=== PATIENT | female | born 1995 | race Hispanic/Latino ===

== ENCOUNTER 2016-09-25 19:07 | Emergency (ER) | payer MEDICAID ==
[2016-09-25 19:30] VITALS: BMI 30.2
[2016-09-25 19:37] VITALS: TEMP 97.8
--- NOTE | 2016-09-25 19:48 | ED PDOC ---
Arrival/HPI - General Chief Complaint: Finger,Hand,&Wrist Time Seen by Provider: 09/25/16 19:37 Historian: Patient - History of Present Illness Narrative History of Present Illness (Text): 09/25/16 19:45 Patient presents to emergency room complaining of bilateral wrist pain, right greater than left, she describes the pain as intermittent sharp pain associated with a pins and needles numb sensation to the fingertips. 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 Patient does admit to repetitive movements at work using her hands and wrist. Denies any trauma, fever, chills, other joint pain, has no other complaints otherwise. PMD Elayne Past Medical History - Provider Review Nursing Documentation Reviewed: Yes - Past Medical History Past Medical History: No Previous - Psychiatric Hx Depression: No Hx Emotional Abuse: No Hx Physical Abuse: No Hx Substance Use: No - Past Surgical History Past Surgical History: No Previous - Anesthesia Hx Anesthesia: No - Suicidal Assessment Feels Threatened In Home Enviroment: No Family/Social History - Physician Review Nursing Documentation Reviewed: Yes Family/Social History: No Known Family HX Smoking Status: Current Some Days Smoker Hx Alcohol Use: Yes (socially) Frequency of alcohol use: Socially Hx Substance Use: No Hx Substance Use Treatment: No Allergies/Home Meds Allergies/Adverse Reactions: Allergies Penicillins Allergy (Verified 09/25/16 19:30) RASH Review of Systems - Review of Systems Constitutional: Normal. absent: Fatigue, Weight Change, Fevers Musculoskeletal: Normal, Arthralgias. absent: Back Pain, Neck Pain Skin: Normal. absent: Rash, Pruritis Physical Exam - Physical Exam Narrative Physical Exam (Text): 09/25/16 19:47 GENERAL APPEARANCE: Patient is awake, alert, oriented x 3, in no acute distress. SKIN: Warm, dry; (-) cyanosis. WRIST: (+) Mild tenderness to the volar aspect of the R wrist, (-) swelling, (- ) ecchymosis, (-) deformity. (+) FROM, (-) snuff-box tenderness. (-) distal neurovascular deficit. HANDS: (-) Tenderness, (-) swelling, (-) ecchymosis; (-) crepitus, (-) deformity. Tendon function intact. (-) distal neurovascular deficit. 2 point discrimination. Remainder of hand, digits and elbow: (-) tenderness, (-) edema , (+) FROM. Vital Signs Temp Pulse Resp BP Pulse Ox 09/25/16 19:36 97.8 F 69 16 125/62 97 Medical Decision Making ED Course and Treatment: 09/25/16 19:48 21 yo F presents with b/l wrist pain, R>L, likely carpal tunnel syndrome, will treat as such. Cock up splint applied to b/l wrist. Rx of naprosyn provided. Patient states she fully agrees with and understands discharge instructions. States that she agrees with the plan and disposition. Verbalized and repeated discharge instructions and plan. I have given the patient opportunity to ask any additional questions. Follow up with primary care physician in 1-2 days without fail. Advised to take medication as prescribed. Return to the emergency room at any time for any new or worsening symptoms. - PA / QUALITY ASSOCIATE / Resident Statement / has reviewed & agrees with the documentation as recorded. Disposition/Present on Arrival - Present on Arrival Any Indicators Present on Arrival: No History of DVT/PE: No History of Uncontrolled Diabetes: No Urinary Catheter: No History of Decub. Ulcer: No History Surgical Site Infection Following: None - Disposition Have Diagnosis and Disposition been Completed?: Yes Diagnosis: Bilateral wrist pain, Carpal tunnel syndrome Disposition: HOME/ ROUTINE Disposition Time: 19:50 Patient Plan: Discharge Condition: GOOD Discharge Instructions (ExitCare): Carpal Tunnel Syndrome (ED) Print Language: SAMMARINESE Additional Instructions: Thank you for letting us take care of you today. You were treated for bilateral wrist pain, likely carpal tunnel syndrome. The emergency medical care you received today was directed at your acute symptoms. If you were prescribed any medication, please fill it and take as directed. It may take several days for your symptoms to resolve. Return to the Emergency Department if your symptoms worsen, do not improve, or if you have any other problems. Please contact your doctor in 2 days for re-evaluation and follow up / or call one of the physicians/clinics you have been referred to that are listed on the Patient Visit Information form that is included in your discharge packet. Bring any paperwork you were given at discharge with you along with any medications you are taking to your follow up visit. Our treatment cannot replace ongoing medical care by a primary care provider (PCP) outside of the emergency department. Thank you for allowing the [facility] team to be part of your care today. Prescriptions: Naproxen 500 mg PO BID #30 tab Forms: WORK NOTE
[2016-09-25 20:47] VITALS: BP 112/41; PULSE 78; RESP 18; O2SAT 100
== END 2016-09-25 20:45 | disposition home or self-care (01) ==
LOC: ED 19:07
DX: M25.532 Pain in left wrist (principal); M25.531 Pain in right wrist; G56.03 Carpal tunnel syndrome, bilateral upper limbs

== ENCOUNTER 2016-10-20 13:41 | Emergency (ER) | payer MEDICAID ==
[2016-10-20 13:41] VITALS: BMI 30.2
[2016-10-20] MEDS ORDERED: Sodium Chloride 0.9% 1,000 ML IV STA ×2 (13:58→15:07)
--- NOTE | 2016-10-20 14:03 | ED PDOC ---
Arrival/HPI - General Chief Complaint: Abdominal Pain Time Seen by Provider: 10/20/16 13:48 Historian: Patient - History of Present Illness Narrative History of Present Illness (Text): 10/20/16 14:00 -21 y/o female, pmh including renal stone, penicillin allergy, c/o lt. flank pain radiating to the lt. lower abdominal x 5 hours. Aching and sharp pain, no urinary symptoms, no fever or chills, no rash, feels nauseous, no pelvic pain, no vaginal pain or bleeding, no night sweat, no other medical or psychological complaints. Past Medical History - Provider Review Nursing Documentation Reviewed: Yes - Infectious Disease Hx of Infectious Diseases: None - Reproductive Menopause: No - Past Medical History Past Medical History: No Previous - Renal Hx Kidney Stones: Yes - Psychiatric Hx Depression: No Hx Emotional Abuse: No Hx Physical Abuse: No Hx Substance Use: No - Past Surgical History Past Surgical History: No Previous - Anesthesia Hx Anesthesia: No - Suicidal Assessment Feels Threatened In Home Enviroment: No Family/Social History - Physician Review Nursing Documentation Reviewed: Yes Family/Social History: Unknown Family HX Smoking Status: Current Some Days Smoker Hx Alcohol Use: Yes (socially) Hx Substance Use: No Hx Substance Use Treatment: No Allergies/Home Meds Allergies/Adverse Reactions: Allergies Penicillins Allergy (Verified 09/25/16 19:30) RASH Home Medications: Home Meds Medication Instructions Recorded Confirmed Naproxen 500 mg PO PRN PRN 10/20/16 10/20/16 Review of Systems - Review of Systems Constitutional: absent: Fatigue, Fevers Eyes: absent: Vision Changes ENT: absent: Hearing Changes Respiratory: absent: Cough, Sputum Cardiovascular: absent: Chest Pain Gastrointestinal: Abdominal Pain, Nausea, Vomiting Genitourinary Female: absent: Dysuria Musculoskeletal: Back Pain. absent: Arthralgias, Neck Pain, Joint Swelling Skin: absent: Rash, Pruritis, Skin Lesions Neurological: absent: Headache, Dizziness, Focal Weakness Endocrine: absent: Diaphoresis Psychiatric: absent: Anxiety, Depression, Suicidal Ideation Physical Exam Vital Signs Reviewed: Yes Vital Signs Temp Pulse Resp BP Pulse Ox 10/20/16 15:03 64 18 138/86 100 10/20/16 13:51 97.6 F 68 20 142/90 100 Temperature: Afebrile Blood Pressure: Normal Pulse: Regular Respiratory Rate: Normal Appearance: Positive for: Well-Appearing, Non-Toxic, Uncomfortable Pain Distress: Moderate Mental Status: Positive for: Alert and Oriented X 3 - Systems Exam Head: Present: Atraumatic, Normocephalic Pupils: Present: PERRL Extroacular Muscles: Present: EOMI Conjunctiva: Present: Normal Ears: Present: NORMAL TM, Normal Canal. No: Erythema Mouth: Present: Moist Mucous Membranes Pharnyx: No: ERYTHEMA, EXUDATE, TONSILS ENLARGED, Uvular Deviation, Muffled/ Hoarse Voice, Soft Palate/Uvular Edema Neck: Present: Normal Range of Motion Respiratory/Chest: Present: Clear to Auscultation, Good Air Exchange. No: Respiratory Distress, Accessory Muscle Use Cardiovascular: Present: Regular Rate and Rhythm, Normal S1, S2. No: Murmurs Abdomen: Present: Tenderness (lt. lower quadrant), Normal Bowel Sounds. No: Distention, Peritoneal Signs, Rebound, Guarding Back: Present: Normal Inspection, CVA Tenderness (left). No: Midline Tenderness , Paraspinal Tenderness, Pain with Leg Raise, Decubitus Ulcer Upper Extremity: Present: Normal Inspection. No: Cyanosis, Edema Lower Extremity: Present: Normal Inspection. No: Edema Neurological: Present: GCS=15, Speech Normal, Motor Func Grossly Intact, Gait Normal, Memory Normal Skin: Present: Warm, Dry, Normal Color. No: Rashes Lymphatic: No: Cervical Adenopathy Psychiatric: Present: Alert, Oriented x 3, Normal Insight, Normal Concentration Medical Decision Making ED Course and Treatment: 10/20/16 13:59 -labs/ua -CT abdomen and pelvis -IVF/reglan/toradol -Observe and reasses 10/20/16 14:26 -Labs are non-significant -UA show no UTI -pending CT abdomen and pelvis. 10/20/16 15:09 -CT show mild lt. hydronephrosis with 3mm stone. -more IVF/flomax/strainer/flexeril ordered, pain is well controlled now. 10/20/16 15:14 -[facility] report I reviewed with no narcotic prescription given this year. -I will put her on flexeril and flomax. -Discharge home with macrobid, flexeril, percocet, flomax, strainer, stay hydrated, bed rest, follow up with your own pmd and urologist within 2 days, return to the ER for any new or worsening signs or symptoms. - Lab Interpretations Lab Results: 10/20/16 14:09 10/20/16 14:09 Lab Results 10/20/16 14:09: Sodium 141, Potassium 3.8, Chloride 105, Carbon Dioxide 22, Anion Gap 18, BUN 21, Creatinine 0.7, Est GFR ( Amer) > 60, Est GFR (Non- Af Amer) > 60, Random Glucose 106, Calcium 9.3, Total Bilirubin 0.4, AST 22, ALT 25, Alkaline Phosphatase 89, Total Protein 7.7, Albumin 4.3, Globulin 3.4, Albumin/Globulin Ratio 1.3, Lipase 87 10/20/16 14:09: Urine Color Light yellow, Urine Appearance Sl cloudy, Urine pH 6.5, Ur Specific [place] 1.015, Urine Protein Negative, Urine Glucose (UA) Negative, Urine Ketones Negative, Urine Blood Large H, Urine Nitrate Negative, Urine Bilirubin Negative, Urine Urobilinogen 0.2, Ur Leukocyte Esterase Negative , Urine RBC 10 - 15, Urine WBC 0 - 2, Ur Epithelial Cells 1 - 3, Urine Bacteria Few 10/20/16 14:09: WBC 5.6, RBC 4.67, Hgb 12.3, Hct 37.4, MCV 80.1, MCH 26.3, MCHC 32.9, RDW 14.5, Plt Count 282, MPV 9.1, Gran % 59.2, Lymph % (Auto) 31.1, [place] % (Auto) 7.0 H, Eos % (Auto) 2.0, Baso % (Auto) 0.7, Gran # 3.30, Lymph # 1.7, [place] # 0.4, Eos # 0.1, Baso # 0.04 I have reviewed the lab results: Yes Interpretation: No clinic. lab abnormalty - RAD Interpretation Radiology Orders: 10/20/16 13:58 ABD & PELVIS W/O PO OR IV CONT [CT] Stat - Medication Orders Current Medication Orders: Sodium Chloride (Sodium Chloride 0.9%) 1,000 mls @ 999 mls/hr IV .Q1H1M STA Stop: 10/20/16 16:07 Discontinued Medications Cyclobenzaprine HCl (Flexeril) 10 mg PO STAT STA Stop: 10/20/16 15:08 Sodium Chloride (Sodium Chloride 0.9%) 1,000 mls @ 999 mls/hr IV .Q1H1M STA Stop: 10/20/16 14:58 Last Admin: 10/20/16 14:11 Dose: 999 mls/hr Ketorolac Tromethamine (Toradol) 30 mg IVP STAT STA Stop: 10/20/16 13:59 Last Admin: 10/20/16 14:13 Dose: 30 mg Metoclopramide HCl (Reglan) 10 mg IVP STAT STA Stop: 10/20/16 13:59 Last Admin: 10/20/16 14:14 Dose: 10 mg Tamsulosin HCl (Flomax) 0.4 mg PO STAT STA Stop: 10/20/16 15:08 - PA / SENIOR ACCOUNTANT CPA / Resident Statement / has reviewed & agrees with the documentation as recorded. Disposition/Present on Arrival - Present on Arrival Any Indicators Present on Arrival: No History of DVT/PE: No History of Uncontrolled Diabetes: No Urinary Catheter: No History of Decub. Ulcer: No History Surgical Site Infection Following: None - Disposition Have Diagnosis and Disposition been Completed?: Yes Diagnosis: Ureter colic Disposition: HOME/ ROUTINE Disposition Time: 15:10 Patient Plan: Discharge Patient Problems: Current Active Problems Problem Status Onset Ureter colic Acute Condition: IMPROVED Additional Instructions: Discharge home with macrobid, flexeril, percocet, flomax, strainer, stay hydrated, bed rest, follow up with your own pmd and urologist within 2 days, return to the ER for any new or worsening signs or symptoms. Prescriptions: Cyclobenzaprine [Cyclobenzaprine HCl] 10 mg PO TID PRN #21 tab PRN Reason: Other Nitrofurantoin Macrocrystals [Macrobid] 100 mg PO BID #14 cap oxyCODONE/Acetaminophen [Percocet 5/325 mg Tab] 1 tab PO TID PRN #8 tab PRN Reason: Other Tamsulosin [Flomax] 0.4 mg PO DAILY #7 cap Referrals: PCP,NO [Primary Care Provider] - Follow up with primary Nadeem Kinsey MD [Staff Provider] - Follow up with primary [facility] [place] [Outside] - Follow up with primary Forms: WORK NOTE
[2016-10-20 14:11] LABS: ADD MANUAL DIFF? NO
[2016-10-20 14:13] LABS: BASO # 0.04 K/mm3 (0.0-2.0); BASO % 0.7 % (0.0-3.0); EOS # 0.1 (0.0-0.7); GRAN % 59.2 % (50.0-68.0); HEMATOCRIT 37.4 % (36.0-48.0); LYMPH # 1.7 (1.2-3.4); LYMPH % 31.1 % (22.0-35.0); MEAN CELL VOLUME 80.1 fL (80.0-105.0); MEAN CORPUSCULAR HEMOGLOBIN 26.3 pg (25.0-35.0); MEAN CORPUSCULAR HGB CONC 32.9 g/dl (31.0-37.0); MEAN PLATELET VOLUME 9.1 fl (7.0-11.0); MONO # 0.4 (0.1-0.6); PLATELET COUNT 282 10^3/uL (120.0-450.0); RED CELL DISTRIBUTION WIDTH 14.5 % (11.5-14.5); WHITE BLOOD COUNT 5.6 10^3/ul (4.5-11.0)
[2016-10-20 14:17] LABS: PH,URINE 6.5 (4.7-8.0); URINE BILIRUBIN NEGATIVE (NEGATIVE); URINE BLOOD LARGE (NEGATIVE); URINE GLUCOSE (UA) NEGATIVE (NEGATIVE); URINE KETONE NEGATIVE (NEGATIVE); URINE LEUKOCYTE ESTERASE NEGATIVE Leu/uL (NEGATIVE); URINE PROTEIN NEGATIVE mg/dL (<30 mg/dL); URINE UROBILINOGEN 0.2 E.U./dL (<1 E.U./dL)
[2016-10-20 14:21] LABS: URINE APPEARANCE SL CLOUDY (CLEAR); URINE COLOR LIGHT YELLOW (YELLOW)
[2016-10-20 14:23] LABS: ALB/GLOB RATIO 1.3 (1.1-1.8); ALKALINE PHOSPHATASE 89 U/L (38-133); ALT/SGPT 25 U/L (7-56); AST/SGOT 22 U/L (15-39); BILIRUBIN,TOTAL 0.4 mg/dL (0.2-1.3); BLOOD UREA NITROGEN 21 mg/dL (7-21); CALCIUM 9.3 mg/dL (8.4-10.5); CARBON DIOXIDE 22 mmol/L (21-33); CHLORIDE 105 mmol/L (95-110); GFR AFRICAN-AMERICAN > 60; GLUCOSE,RANDOM 106 mg/dL (70-110); LIPASE 87 U/L (23-300); POTASSIUM 3.8 mmol/L (3.6-5.0); SODIUM 141 mmol/L (132-148); TOTAL PROTEIN 7.7 g/dL (5.8-8.3)
[2016-10-20 14:44] LABS: URINE BACTERIA FEW (NEG); URINE WBC 0 - 2 /hpf (0-6)
--- NOTE | 2016-10-20 15:03 | CT ---
PROCEDURE: CT Abdomen and Pelvis without intravenous contrast HISTORY: lt. sided flank pain radiating to the lt. lower ab COMPARISON: 02/11/2014 TECHNIQUE: Without contrast.. Contrast Dose: Radiation dose: Total exam DLP = 394 mGy-cm. This CT exam was performed using one or more of the following dose reduction techniques: Automated exposure control, adjustment of the mA and/or kV according to patient size, and/or use of iterative reconstruction technique. FINDINGS: LOWER THORAX: Unremarkable. LIVER: Unremarkable. No gross lesion or ductal dilatation. GALLBLADDER AND BILE DUCTS: Unremarkable. PANCREAS: Unremarkable. No gross lesion or ductal dilatation. SPLEEN: Unremarkable. ADRENALS: Unremarkable. No mass. KIDNEYS AND URETERS: There is a 3 mm stone in the left distal ureter at the UVJ seen on image 146 series 2. The ureter is mildly dilated. There is mild hydronephrosis. There is a 4 mm stone in the left kidney. Small 1 mm stones are seen in the right kidney VASCULATURE: Unremarkable. No aortic aneurysm. BOWEL: Unremarkable. No obstruction. No gross mural thickening. APPENDIX: Unremarkable. Normal appendix. PERITONEUM: Unremarkable. No free fluid. No free air. LYMPH NODES: Unremarkable. No enlarged lymph nodes. BLADDER: Unremarkable. REPRODUCTIVE: Unremarkable. BONES: No acute fracture. OTHER FINDINGS: None. IMPRESSION: 3 mm stone in left distal ureter at the UVJ with mild hydronephrosis
[2016-10-20 17:20] VITALS: BP 133/78; PULSE 69; O2SAT 99
[2016-10-20 17:40] VITALS: RESP 16; TEMP 98.6
== END 2016-10-20 17:40 | disposition home or self-care (01) ==
LOC: ED 13:41
DX: N20.1 Calculus of ureter (principal); Z87.442 Personal history of urinary calculi
CPT/HCPCS: 74176; 80053; 81001; 83690; 85025; 96361; 96374; 96375; 99284; J1885; J2765; J7040